=== PATIENT | male | born 1975 | race Caucasian/White ===

== ENCOUNTER 2020-01-17 19:03 | Emergency (ER) | payer OTHER ==
[~2020-01-17] VITALS: Ht 188 cm; Wt 90.7 kg
[2020-01-17] MEDS ORDERED: Roxicodone5 MG PO (20:38)
[2020-01-17] MEDS ORDERED: CEPH500 PO (20:40)
== END 2020-01-17 20:57 | disposition home or self-care (01) ==
LOC: ER 19:03
DX: S82.832A Other fracture of upper and lower end of left fibula, initial encounter for closed fracture (principal); S82.52XA Displaced fracture of medial malleolus of left tibia, initial encounter for closed fracture; W19.XXXA Unspecified fall, initial encounter
CPT/HCPCS: 27788; 73600; 90471; 96374-59; 99152; 99284-25; A9270; A9270-GY; J2704; J3010; J7030